=== PATIENT | male | born 1960 | race Caucasian/White ===

== ENCOUNTER 2020-05-29 10:24 | Emergency (ER) | payer BC, OTHER ==
[2020-05-29 10:41] VITALS: BP 138/95; PULSE 93
--- NOTE | 2020-05-29 12:05 | EDM.PDOC ---
ED HPI GENERAL MEDICAL PROBLEM - General Chief Complaint: Eye Problems Stated Complaint: [employer] GOT IN EYES Time Seen by Provider: 05/29/20 10:59 Source of Information: Reports: Patient, RN Notes Reviewed History Limitations: Reports: No Limitations - History of Present Illness INITIAL COMMENTS - FREE TEXT/NARRATIVE: Patient is a 60-year-old male presenting to the emergency department with complaints of exposure to documentation engineer in his eyes. He states he was at work and a can of documentation engineer became punctured. It sprayed a mist of documentation engineer into the air which she states got into his eyes. He did not have a direct splash of the chemical into his eyes. He washed his eyes out well at the eyewash station as well as and wash his face as well. He states that initially he had some irritation in his eyes, but since he cleaned them out that resolved. He denies any blurry vision. States that his employer required him to be evaluated in the ER. Patient states that this occurred around 7:00 this morning. 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 [No Known Home Meds] 05/29/20 [History] Past Medical History - Past Health History Medical/Surgical History: Denies Medical/Surgical History Social & Family History - Tobacco Use Tobacco Use Status *Q: Current Some Day Tobacco User Years of Tobacco use: 30 Packs/Tins Daily: 0.4 Second Hand Smoke Exposure: No - Caffeine Use Caffeine Use: Reports: Soda - Recreational Drug Use Recreational Drug Use: No ED ROS GENERAL - Review of Systems Review Of Systems: See Below Constitutional: Reports: No Symptoms HEENT: Denies: Eye Discharge, Eye Pain, Vision Change Respiratory: Reports: No Symptoms Cardiovascular: Reports: No Symptoms Endocrine: Reports: No Symptoms GI/Abdominal: Reports: No Symptoms : Reports: No Symptoms Musculoskeletal: Reports: No Symptoms Skin: Reports: No Symptoms Neurological: Reports: No Symptoms Psychiatric: Reports: No Symptoms Hematologic/Lymphatic: Reports: No Symptoms Immunologic: Reports: No Symptoms ED EXAM GENERAL W FULL EYE - Physical Exam Exam: See Below Exam Limited By: No Limitations General Appearance: Alert, WD/WN, No Apparent Distress Eye Exam: Bilateral Eye: Normal Inspection, PERRL Eyelids: Bilateral: Normal Appearance Conjunctiva & Sclera: Bilateral: Normal Appearance Extraocular Movements: Bilateral: Intact Pupils: Normal Accommodation Respiratory/Chest: No Respiratory Distress, Lungs Clear, Normal Breath Sounds, No Accessory Muscle Use, Chest Non-Tender Cardiovascular: Normal Peripheral Pulses, Regular Rate, Rhythm, No Edema, No Gallop, No JVD, No Murmur, No Rub Neurological: Alert, Oriented, CN II-XII Intact, Normal Cognition, Normal Gait, Normal Reflexes, No Motor/Sensory Deficits Psychiatric: Normal Affect, Normal Mood Skin Exam: Warm, Dry, Intact, Normal Color, No Rash Course - Vital Signs Last Recorded V/S: Last Vital Signs Temp 97.2 F 05/29/20 10:34 Pulse 93 05/29/20 10:34 Resp 18 05/29/20 10:34 BP 138/95 H 05/29/20 10:34 Pulse Ox 96 05/29/20 10:34 - Re-Assessments/Exams Free Text/Narrative Re-Assessment/Exam: Patient is a 60-year-old male presenting to the emergency department for evaluation after having an exposure to documentation engineer in his eyes. He states that the can punctured and sprayed a mist into the air. He did not get sprayed directly in his eyes, but states that some of the mist must of got into his eyes as he initially had some irritation. He thoroughly washed his eyes at eyewash station and wash his face as well. Initial pH test was normal at 7. To be safe, we will irrigate his eyes with 500 mils of saline in each eye. 05/29/20 12:02 Patient has completed irrigation of his eyes with 500 mils of saline in each eye. Repeat pH is also 7. We will discharge him home. Return precautions discussed. Discharge instructions as documented. Departure - Departure Time of Disposition: 12:04 Disposition: Home, Self-Care 01 Condition: Good Clinical Impression: Chemical exposure of eye - Discharge Information *PRESCRIPTION DRUG MONITORING PROGRAM REVIEWED*: No *COPY OF PRESCRIPTION DRUG MONITORING REPORT IN PATIENT SAMANTHA: No Instructions: Eye Foreign Body, [id number] Referrals: PCP,None [Primary Care Provider] - Forms: ED Department Discharge, ED Return to Work/School Form Additional Instructions: You were seen in the emergency department today for evaluation after having your eyes exposed to documentation engineer. In the ER, your eyes were flushed well with saline. pH testing of your eyes was completed and was found to be normal. If you should have any recurrence of burning or any changes in your vision, recommend return to the ER if it is the weekend. If it should occur during the week, you may follow-up with an eye doctor or return to the ER. Sepsis Event Note (ED) - Evaluation Sepsis Screening Result: No Definite Risk - Focused Exam Vital Signs: Vital Signs Temp Pulse Resp BP Pulse Ox 05/29/20 10:34 97.2 F 93 18 138/95 H 96
== END 2020-05-29 12:15 | disposition home or self-care (01) ==
LOC: JD.ED 10:24
DX: Z77.098 Contact with and (suspected) exposure to other hazardous, chiefly nonmedicinal, chemicals (principal); F17.210 Nicotine dependence, cigarettes, uncomplicated
CPT/HCPCS: 99283